=== PATIENT | female | born 2000 | race Caucasian/White ===

== ENCOUNTER → 2025-04-01 | Outpatient (REF) | payer OTHER | LOC: M LAB REF 14:37 | PROVIDERS: ATTEND Student in an Organized Health Care Education/Training Program | DX: Z34.90 Encounter for supervision of normal pregnancy, unspecified, unspecified trimester (principal) ==

== ENCOUNTER → 2025-04-29 | Outpatient (CLI) | payer OTHER | LOC: M WHC 14:23 | PROVIDERS: ATTEND Student in an Organized Health Care Education/Training Program | DX: Z34.91 Encounter for supervision of normal pregnancy, unspecified, first trimester (principal) ==

== ENCOUNTER → 2025-06-09 | Outpatient (CLI) | payer OTHER ==
[2025-06-09 17:35] LABS: PLATELET COUNT, AUTOMATED 289 10^3/uL (150-450)
[2025-06-09 18:11] LABS: HIV 1&2 SCREEN NEGATIVE (NEGATIVE)
[2025-06-09 18:19] LABS: HEPATITIS C VIRUS ABY INDEX < 0.02 INDEX (<0.8)
[2025-06-09 18:22] LABS: Trichomonas vaginalis (AMP) NOT DETECTED (NEGATIVE)
[2025-06-09 18:45] LABS: GC DNA AMPLIFICATION NEGATIVE (NEGATIVE)
== END ==
LOC: M PLALAB 13:43
PROVIDERS: ATTEND Specialist
DX: Z34.01 Encounter for supervision of normal first pregnancy, first trimester (principal)